=== PATIENT | female | born 1995 | race Caucasian/White ===

== ENCOUNTER 2017-01-10 23:44 | Emergency (ER) | payer MEDICAID ==
[~2017-01-10] VITALS: Ht 152.4 cm; Wt 104.3 kg
[2017-01-10 23:47] VITALS: BP 140/60
--- NOTE | 2017-01-10 23:54 | NUR ---
AMBULATED TO ER BED 6
--- NOTE | 2017-01-10 23:55 | NUR ---
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 RASH TO RUQ NOTED. PT REPORTS SHE HAS BEEN CLEANING SITE WITH WOUND CLEANSER AND APPLYING ANTI-ITCH CREAM. NO OTHER ASSOSCIATED SYMPTOMS. VSS; PATIENT POSITIONED FOR COMFORT; BED DOWN. ER MD MADE AWARE OF PT STATUS.
--- NOTE | 2017-01-11 00:13 | NUR ---
Patient being evaluated by physician at bedside.
[2017-01-11] MEDS ORDERED: ceFAZolin 1,000 MG VIAL IM ONE (00:20)
[2017-01-11] MEDS ORDERED: WATER STERILE 10 ML MC ONE (00:36)
--- NOTE | 2017-01-11 01:10 | NUR ---
Patient discharged with v/s stable. Written and verbal after care instructions given and explained. Patient alert, oriented and verbalized understanding of instructions. Ambulatory with steady gait. All questions addressed prior to discharge. ID band removed. Patient advised to follow up with PMD. Rx of KEFLEX 500MG ONE CAP PO 4X DAILY X 7DAYS given. Patient educated on indication of medication including possible reaction and side effects. Opportunity to ask questions provided and answered. Addendum: 01/11/17 at 0133 by [facility]AE RX AND DC INSTRUCTIONS GIVEN BY JEMIMA HUERTA
== END 2017-01-11 01:10 | disposition home or self-care (01) ==
LOC: MED 23:44
DX: L03.313 Cellulitis of chest wall (principal)
CPT/HCPCS: 96372; 99283; J0690

== ENCOUNTER 2018-04-22 18:24 | Emergency (ER) | payer MEDICAID ==
[~2018-04-22] VITALS: Ht 152.4 cm; Wt 105.2 kg
[2018-04-22 19:01] VITALS: BP 133/62
--- NOTE | 2018-04-22 19:11 | NUR ---
PT AMBULATED TO BED 4
--- NOTE | 2018-04-22 19:11 | NUR ---
PT PRESENTS TO ED WITH RUQ ABD PAIN RADIATING TO RIGHT LOWER BACK X2 DAYS. PT STATES NAUSEA WITHOUT VOMITING OR DIARRHEA. PT ASLO C/O STABBING RIGHT SIDED CHEST PAIN 6/10 X2 DAYS. PT STATES CHEST PAIN EXACERBATES WITH ABD PAIN. NO SOB OR DYSPNEA. VSS. A&OX4. ACCOMPANIED BY MOTHER. POSITIONED IN BED FOR COMFORT WITH HOB ELEVATED AND SIDE RAILS UP. ER MD AWARE. CONTINUE TO MONITOR.
[2018-04-22] MEDS ORDERED: KETOROLAC 30 MG/ML VIAL IM ONE (19:50)
[2018-04-22 20:11] LABS: BASOPHILS # (AUTO) 0.1 K/uL (0.00-0.22); BASOPHILS % (AUTO) 0.6 % (0.0-2.0); EOSINOPHILS # (AUTO) 0.2 K/uL (0-0.4); EOSINOPHILS % (AUTO) 1.6 % (0.0-4.0); HEMATOCRIT 39.9 % (36-48); LYMPHOCYTES # (AUTO) 2.7 K/uL (2.5-16.5); LYMPHOCYTES % (AUTO) 22.5 % (20.5-51.1); MEAN CORPUSCULAR HEMOGLOBIN 28 pg (27-31); MEAN CORPUSCULAR HGB CONC 33 g/dL (33-37); MEAN CORPUSCULAR VOLUME 86.6 fL (80-94); MONOCYTES # (AUTO) 0.6 K/uL (0.8-1.0); MONOCYTES % (AUTO) 4.7 % (1.7-9.3); NEUTROPHILS # (AUTO) 8.4 K/uL (1.8-7.7); NEUTROPHILS % (AUTO) 70.6 % (42.2-75.2); PLATELET COUNT (AUTO) 361 K/uL (140-450); RED BLOOD CELL COUNT(AUTO) 4.61 MIL/uL (4.20-5.40); RED CELL DISTRIBUTION WIDTH 13.4 % (11.6-13.7); WHITE BLOOD COUNT (AUTO) 11.9 K/uL (4.8-10.8)
--- NOTE | 2018-04-22 20:14 | NUR ---
EKG PERFORMED AT BEDSIDE WITH FAMILY MEMBER AND STADIUM MANAGER PRESENT. PT COVERED IN GOWN DURING PROCEDURE.
[2018-04-22 20:30] LABS: APPEARANCE,URINE CLEAR (CLEAR); BILIRUBIN,URINE NEGATIVE (NEGATIVE); BLOOD, URINE NEGATIVE (NEGATIVE); COLOR,URINE YELLOW (YELLOW); LEUKOCYTE ESTERASE ,URINE NEGATIVE (NEGATIVE); NITRITE, URINE NEGATIVE (NEGATIVE); UGLUCOSE NEGATIVE (NEGATIVE)
[2018-04-22] MEDS ORDERED: DICYCLOMINE HCL LIQUID 20 MG, ALUMINUM HYD/MAG/SIMETHICONE 30 ML, LIDOCAINE VISCOUS 2% ... PO ONE ×3 (20:40)
[2018-04-22 20:53] LABS: POTASSIUM 4.6 mmol/L (3.5-5.1)
[2018-04-22 20:54] LABS: ANION GAP 10.4 (8-16); CARBON DIOXIDE 28.2 mmol/L (21-32); CREATININE 0.7 mg/dL (0.6-1.3); TOTAL BILIRUBIN 0.3 mg/dL (0.0-1.0)
[2018-04-22 20:55] LABS: ALBUMIN 4.1 g/dL (3.4-5.0)
--- NOTE | 2018-04-22 21:35 | NUR ---
Patient discharged with v/s stable. Written and verbal after care instructions given and explained. Patient alert, oriented and verbalized understanding of instructions. Ambulatory with steady gait. All questions addressed prior to discharge. ID band removed. Patient advised to follow up with PMD. Rx of Pepcid, and MiraLax given. Patient educated on indication of medication including possible reaction and side effects. Opportunity to ask questions provided and answered.
[2018-04-22 22:39] VITALS: BP 120/75
== END 2018-04-22 21:35 | disposition home or self-care (01) ==
LOC: MED 18:24
DX: K59.00 Constipation, unspecified (principal); K29.70 Gastritis, unspecified, without bleeding
CPT/HCPCS: 36415; 71045; 74018; 76705; 80053; 81003; 81025; 83690; 85025; 93005; 96372; 99284; J1885; Q0092

== ENCOUNTER 2019-01-18 12:42 | Emergency (ER) | payer MEDICAID ==
[~2019-01-18] VITALS: Ht 154.9 cm; Wt 94.3 kg
--- NOTE | 2019-01-18 12:54 | NUR ---
Patient ambulated to bed 5. RN evaluating patient at bedside.
[2019-01-18 12:55] VITALS: BP 120/75
[2019-01-18 14:56] VITALS: BP 120/75
== END 2019-01-18 14:56 | disposition home or self-care (01) ==
LOC: MED 12:42
DX: S93.401A Sprain of unspecified ligament of right ankle, initial encounter (principal); G43.909 Migraine, unspecified, not intractable, without status migrainosus; Z98.890 Other specified postprocedural states; W01.0XXA Fall on same level from slipping, tripping and stumbling without subsequent striking against object, initial encounter; Y93.89 Activity, other specified; Y92.89 Other specified places as the place of occurrence of the external cause; Y99.8 Other external cause status
CPT/HCPCS: 29515; 73610; 99283; Q0092

== ENCOUNTER 2019-08-15 19:35 | Emergency (ER) | payer MEDICAID ==
[~2019-08-15] VITALS: Ht 152.4 cm; Wt 97.5 kg
[2019-08-15 19:38] VITALS: BP 109/68
--- NOTE | 2019-08-15 19:46 | NUR ---
pt ambulated to bed #4
[2019-08-15 20:00] VITALS: BP 109/68
--- NOTE | 2019-08-15 20:05 | NUR ---
24 Y/O F PRESENTS TO ED WITH C/O RT WRIST AND SHOULDER PAIN X1200. PT REPORTS FALLING OFF OF SKATEBOARD. NO LOC. PT DENIES HEADACHE, N/V. +CMS. NO OBVIOUS DEFORMITY NOTED.
--- NOTE | 2019-08-15 20:21 | NUR ---
DR. LIU BEDSIDE EVALUATING PT
[2019-08-15] MEDS ORDERED: ACETAMINOPHEN 325 MG TAB PO ONE (20:25)
--- NOTE | 2019-08-15 20:34 | NUR ---
SLING SIZE MEDIUM PLACED OVER PT R ARM, FASTENED TO SIZE
== END 2019-08-15 20:43 | disposition home or self-care (01) ==
LOC: MED 19:35
DX: S46.811A Strain of other muscles, fascia and tendons at shoulder and upper arm level, right arm, initial encounter (principal); S63.501A Unspecified sprain of right wrist, initial encounter; X58.XXXA Exposure to other specified factors, initial encounter; Y93.51 Activity, roller skating (inline) and skateboarding; Y92.89 Other specified places as the place of occurrence of the external cause; Y99.8 Other external cause status
CPT/HCPCS: 73030; 73110; 81025; 99284; Q0092

== ENCOUNTER 2020-04-08 13:44 | Emergency (ER) | payer MEDICAID ==
--- NOTE | 2020-04-08 14:10 | NUR ---
attempted to call pt x [address] Carr made aware.
--- NOTE | 2020-04-08 14:19 | NUR ---
PATIENT LEFT WITHOUT BEING SEEN OR TRIAGED NO FURTHER CARE PROVIDED FOR PATIENT.
== END 2020-04-08 13:56 | disposition left against medical advice (07) ==
LOC: MED 13:44
DX: R10.9 Unspecified abdominal pain (principal); Z53.21 Procedure and treatment not carried out due to patient leaving prior to being seen by health care provider

== ENCOUNTER 2020-11-03 03:57 | Emergency (ER) | payer MEDICAID ==
[~2020-11-03] VITALS: Ht 152.4 cm; Wt 108.9 kg
[2020-11-03 04:02] VITALS: BP 129/63
--- NOTE | 2020-11-03 04:05 | NUR ---
To ED bed 04
--- NOTE | 2020-11-03 04:17 | NUR ---
PT BIB SELF FOR C/O R UPPER AND LOWER QUADRANT PAIN THAT RADIATES TO RIGHT FLANK SINCE 10PM LAST NIGHT. PT DENIES REBOUND TENDERNESS, HOWEVER PT REPORTS TENDERNESS WITH PALPATION TO R SIDE OF ABDOMEN AND R LOWER BACK. PAIN 12/21. IBUPROFEN TAKEN AT HOME WITHOUT RELIEF. DENIES VOMITING, DIARRHEA, FEVER, CHILLS, CP OR SOB. DENIES S/SX OF UTI. MED HX: ENLARGED HEART, ADHD ALLERGIES: NKA
--- NOTE | 2020-11-03 04:26 | NUR ---
ERMD AT BEDSIDE.
--- NOTE | 2020-11-03 04:30 | NUR ---
PER ERMD, BLOOD WORK NOT NEEDED AT THIS TIME.
--- NOTE | 2020-11-03 04:42 | NUR ---
PT TAKEN TO CT VIA W.C.
[2020-11-03 04:53] LABS: APPEARANCE,URINE CLEAR (CLEAR); BILIRUBIN,URINE NEGATIVE (NEGATIVE); BLOOD, URINE NEGATIVE (NEGATIVE); COLOR,URINE YELLOW (YELLOW); LEUKOCYTE ESTERASE ,URINE NEGATIVE (NEGATIVE); NITRITE, URINE NEGATIVE (NEGATIVE); PH,URINE 6.5 (5.0-9.0); UGLUCOSE NEGATIVE (NEGATIVE)
--- NOTE | 2020-11-03 05:15 | NUR ---
PT REPORTS STABBING PAIN IN CHEST, STERNUM AREA. PT STATES UNSURE IF RELATED TO HER DX OF ENLARGED HEART. ERMD MADE AWARE. ORDER FOR EKG.
[2020-11-03 05:24] VITALS: BP 111/76
[2020-11-03] MEDS ORDERED: CEPH-588 PO (06:09)
== END 2020-11-03 06:20 | disposition home or self-care (01) ==
LOC: MED 03:57
DX: N39.0 Urinary tract infection, site not specified (principal)
CPT/HCPCS: 81003; 81025; 93005; 99285